=== PATIENT | female | born 1965 | race African-American/Black ===

== ENCOUNTER 2017-04-17 04:04 | Inpatient (IN) | payer OTHER ==
[~2017-04-17] VITALS: Ht 152.4 cm; Wt 100.6 kg
[2017-04-17 04:47] LABS: BASOPHILS 0.8 % (0-2); EOSINOPHILS 4.8 % (0-7); HEMATOCRIT 37.7 % (36.0-48.0); HEMOGLOBIN 12.5 g/dL (12-16); LYMPHOCYTES 39.5 % (15-50); MCH 31.5 pg (26.0-34.0); MCHC 33.2 g/dL (31.0-37.0); MEAN PLATELET VOLUME 9.3 fL (7.4-10.4); MONOCYTES 9.9 % (2-11); RBC 3.97 10x6/uL (4.00-5.40); RDW 13.2 % (11.5-14.5); WBC 5.3 10x3/uL (4.8-10.8)
[2017-04-17 04:49] LABS: PLATELET COUNT 340 10x3/uL (130-400)
[2017-04-17 04:58] LABS: ALBUMIN 3.1 g/dL (3.4-5.0); ALKALINE PHOSPHATASE 77 U/L (46-116); ALT (SGPT) 31 U/L (10-68); BILIRUBIN - TOTAL 0.23 mg/dL (0.2-1.3); CALC OSMOLALITY 275 mosm/kg (275-300); CALCIUM 8.4 mg/dL (8.5-10.1); CARBON DIOXIDE 27.5 mmol/L (21.0-32.0); CHLORIDE - SERUM 102 mmol/L (98-107); CREATININE - SERUM 0.8 mg/dL (0.6-1.3); GLUCOSE 109 mg/dL (74-106); MAGNESIUM - SERUM 1.5 mg/dL (1.8-2.4); PROTEIN - SERUM 8.2 g/dL (6.4-8.2); SODIUM 137 mmol/L (136-145); UREA NITROGEN 16 mg/dL (7-18); eGFR NON AFRICAN AMERICAN 79 mL/min (90-120)
[2017-04-17] MEDS ORDERED: SYMBICORT 16010.2 GM INH (08:50)
[2017-04-17] MEDS ORDERED: VENTOLIN HFA18 GM INH (08:51)
[2017-04-17] MEDS ORDERED: RISPERDAL1 MG PO (08:52)
[2017-04-17] MEDS ORDERED: SINGULAIR10 MG PO (08:53)
[2017-04-17] MEDS ORDERED: TRAZODONE HCL50 MG PO (08:54)
[2017-04-17] MEDS ORDERED: PROZAC20 MG PO (08:54)
[2017-04-17 13:37] VITALS: BP 147/60
--- NOTE | 2017-04-17 13:43 | NUR ---
THIS AM PTARRIVED FROM ER. CO SOB. WHEEZING HEARD TOÑO. FAN ORDERED O2 ON @ 2. NC. SEE ADMISSION ASSESSMENT FOR EVAL.
[2017-04-17 13:46] VITALS: BP 182/91; BMI 43.0
--- NOTE | 2017-04-17 13:59 | NUR ---
PT REFUSED SCDS BUT IS ON LOVENOX.
[2017-04-17 16:04] VITALS: BP 149/56
[2017-04-17 22:18] VITALS: BP 174/79
[2017-04-18] VITALS (7 sets, daily range): BP systolic 128–174; BP diastolic 65–86; Ht 152.4 cm; Wt 100.6 kg
[2017-04-18 05:58] LABS: BASOPHILS 0 % (0-2); EOSINOPHILS 0.1 % (0-7); HEMATOCRIT 36.6 % (36.0-48.0); HEMOGLOBIN 12.4 g/dL (12-16); IMMATURE GRANULOCYTES 0.1 % (0-5); LYMPHOCYTES 5.4 % (15-50); MCHC 33.9 g/dL (31.0-37.0); MCV 94.6 fL (80.0-100.0); MEAN PLATELET VOLUME 9.5 fL (7.4-10.4); MONOCYTES 4.3 % (2-11); NEUTROPHILS 90.1 % (40-80); PLATELET COUNT 350 10x3/uL (130-400); RBC 3.87 10x6/uL (4.00-5.40); RDW 13.5 % (11.5-14.5)
--- NOTE | 2017-04-18 06:16 | NUR ---
ASSESSMENT DONE. DENIES NEEDS.
[2017-04-18 06:51] LABS: ANION GAP 14.1 mmol/L (8-16); BILIRUBIN - TOTAL 0.2 mg/dL (0.2-1.3); CALCIUM 8.9 mg/dL (8.5-10.1); CARBON DIOXIDE 23.9 mmol/L (21.0-32.0); CREATININE - SERUM 0.9 mg/dL (0.6-1.3); PHOSPHOROUS 2.8 mg/dL (2.5-4.9); PROTEIN - SERUM 8.3 g/dL (6.4-8.2)
--- NOTE | 2017-04-18 08:58 | NUR ---
RESP UL ON . AT BS. CALL LIGHT IN REACH. WILL CONT. PLAN OF CARE.
--- NOTE | 2017-04-18 17:27 | NUR ---
WITHOUT CHANGES OR DISTRESS NOTED AT THIS TIME. DENIES NEEDS.
--- NOTE | 2017-04-18 21:10 | NUR ---
PT AWAKE, ALERT, ORIENTED, DENIES ANY NEEDS AT THIS TIME. PT HAS AUDIBLE WHEEZES. I HAVE ASKED PT TO CALL BEFORE AMBULATING, PT BECOMES DYSPNEIC WITH MINIMAL EXERTION. PT HAS VERBALLY AGREED TO DO SO. WILL CONTINUE TO MONITOR PT CLOSELY. BED LOW, CALL LIGHT IN REACH, SIDE RAILS X 2, HOB 30 DEGREES WITH TWO PILLOWS BEHIND PT. I HAVE GIVEN PT A CULTURE CUP TO COLLECT THE ORDERED RESPIRATORY CULTURE. PT STATES HER SPUTUM IS YELLOW AND BLACK. WILL CONTINUE TO MONITOR CLOSELY.
--- NOTE | 2017-04-19 03:59 | NUR ---
SPUTUM CXL COLLECTED ORDERED
[2017-04-19 04:00] VITALS: BP 129/66
[2017-04-19 05:09] LABS: BASOPHILS 0 % (0-2); EOSINOPHILS 0 % (0-7); HEMATOCRIT 37.4 % (36.0-48.0); HEMOGLOBIN 12.2 g/dL (12-16); IMMATURE GRANULOCYTES 0.2 % (0-5); LYMPHOCYTES 5.1 % (15-50); MCH 31.4 pg (26.0-34.0); MCHC 32.6 g/dL (31.0-37.0); MCV 96.1 fL (80.0-100.0); MEAN PLATELET VOLUME 9.6 fL (7.4-10.4); NEUTROPHILS 89.7 % (40-80); PLATELET COUNT 374 10x3/uL (130-400); RBC 3.89 10x6/uL (4.00-5.40); RDW 13.6 % (11.5-14.5); WBC 11.5 10x3/uL (4.8-10.8)
[2017-04-19 05:28] LABS: ALBUMIN 2.9 g/dL (3.4-5.0); ALKALINE PHOSPHATASE 64 U/L (46-116); ALT (SGPT) 23 U/L (10-68); CALC OSMOLALITY 271 mosm/kg (275-300); CALCIUM 8.7 mg/dL (8.5-10.1); CARBON DIOXIDE 27.6 mmol/L (21.0-32.0); CHLORIDE - SERUM 101 mmol/L (98-107); GLUCOSE 139 mg/dL (74-106); SODIUM 135 mmol/L (136-145); UREA NITROGEN 12 mg/dL (7-18)
[2017-04-19 05:32] LABS: CREATININE - SERUM 0.6 mg/dL (0.6-1.3); POTASSIUM - SERUM 4.7 mmol/L (3.5-5.1); eGFR NON AFRICAN AMERICAN > 90 mL/min (90-120)
--- NOTE | 2017-04-19 06:35 | NUR ---
PT RESTING COMFORTABLY, STILL WITH PRONOUNCED AUDIBLE WHEEZING AND MILD TACHYPNEA. PT IS EASILY ROUSABLE TO VERBAL STIMULI, DENIES ANY NEEDS. CONTINUE TO MONITOR CLOSELY.
--- NOTE | 2017-04-19 07:49 | NUR ---
ASSESSMENT DONE. DENIES NEEDS.
[2017-04-19 08:00] VITALS: BP 113/65
[2017-04-19 08:20] LABS: IMMUNOGLOBULIN E 162 IU/mL (0-100)
--- NOTE | 2017-04-19 08:31 | NUR ---
RESTS IN BED WITH EYES CLOSED. RESP UL ON . CALL LIGHT IN REACH. WILL MONITOR NEEDS.
[2017-04-19 17:26] VITALS: BP 151/77
--- NOTE | 2017-04-19 17:28 | NUR ---
WITHOUT CHANGES OR DISTRESS NOT AT THIS TIME. DENIES NEEDS
--- NOTE | 2017-04-19 19:51 | NUR ---
ANSWERED CL, PT C/O MACK, NORCO 1 TAB GIVEN, PT RATES PAIN AT A 7 ON PAIN SCALE.
[2017-04-19 22:49] VITALS: BP 124/79
--- NOTE | 2017-04-20 00:14 | NUR ---
TEAM LEADER AT BEDSIDE, CALL LIGHT IN REACH. WILL CONTINUE WITH PLAN OF CARE.
--- NOTE | 2017-04-20 01:50 | NUR ---
RESTING WITH EYES CLOSED, RESPERATIONS EVEN, NO S/S DISTRESS NOTED.
[2017-04-20 06:34] LABS: BASOPHILS 0 % (0-2); EOSINOPHILS 0 % (0-7); HEMATOCRIT 38.8 % (36.0-48.0); HEMOGLOBIN 12.8 g/dL (12-16); IMMATURE GRANULOCYTES 0.5 % (0-5); LYMPHOCYTES 6.8 % (15-50); MCH 31.7 pg (26.0-34.0); MEAN PLATELET VOLUME 9.7 fL (7.4-10.4); MONOCYTES 7.3 % (2-11); NEUTROPHILS 85.4 % (40-80); PLATELET COUNT 387 10x3/uL (130-400); RBC 4.04 10x6/uL (4.00-5.40); RDW 13.7 % (11.5-14.5)
[2017-04-20 06:53] LABS: ALBUMIN 2.8 g/dL (3.4-5.0); ALKALINE PHOSPHATASE 70 U/L (46-116); ALT (SGPT) 23 U/L (10-68); CALC OSMOLALITY 272 mosm/kg (275-300); CALCIUM 8.6 mg/dL (8.5-10.1); CARBON DIOXIDE 28.3 mmol/L (21.0-32.0); CHLORIDE - SERUM 101 mmol/L (98-107); CREATININE - SERUM 0.7 mg/dL (0.6-1.3); GLUCOSE 131 mg/dL (74-106); POTASSIUM - SERUM 4.2 mmol/L (3.5-5.1); PROTEIN - SERUM 7.8 g/dL (6.4-8.2); SODIUM 135 mmol/L (136-145); UREA NITROGEN 14 mg/dL (7-18); eGFR NON AFRICAN AMERICAN > 90 mL/min (90-120)
--- NOTE | 2017-04-20 07:30 | NUR ---
RECEIVED PT IN BED EYES CLOSED AROUSES EASILY RESP UNLABORED AUDIBLE WHEEZING NOTED PT DENIES ANY NEEDS AT THIS TIME WILL CONTINUE TO MONITOR
[2017-04-20 08:00] VITALS: BP 142/77
[2017-04-20 12:00] VITALS: BP 138/70
[2017-04-20 16:00] VITALS: BP 132/80
--- NOTE | 2017-04-20 19:27 | NUR ---
ASSESSMENT COMPLETE, A&O. RESPERATIONS LABORED. AUDIBLE WHEEZING NOTED, O2 AT 2 LITER VIA NC. PT DENIES PAIN OR NEEDS, BED LOW, CL IN REACH. WILL CONT TO MONITOR.
[2017-04-20 21:24] VITALS: BP 153/87
--- NOTE | 2017-04-20 21:48 | NUR ---
HS MEDS GIVEN WITH FRESH ICE WATER. PT DENIES PAIN OR NEEDS, BED LOW, CL IN REACH.
[2017-04-21 01:40] VITALS: BP 136/65
[2017-04-21 04:00] VITALS: BP 123/66
--- NOTE | 2017-04-21 04:56 | NUR ---
PT ASLEEP. RESPIRATIONS EVEN AND UNLABORED. NO S/S OF DISTRESS. BED LOW AND CALL LIGHT IN REACH. WILL CPOC
[2017-04-21 06:56] LABS: BASOPHILS 0 % (0-2); EOSINOPHILS 0 % (0-7); HEMATOCRIT 39.3 % (36.0-48.0); HEMOGLOBIN 13.1 g/dL (12-16); IMMATURE GRANULOCYTES 0.4 % (0-5); LYMPHOCYTES 7.6 % (15-50); MCH 32.2 pg (26.0-34.0); MCHC 33.3 g/dL (31.0-37.0); MCV 96.6 fL (80.0-100.0); MEAN PLATELET VOLUME 9.6 fL (7.4-10.4); MONOCYTES 4.7 % (2-11); NEUTROPHILS 87.3 % (40-80); PLATELET COUNT 361 10x3/uL (130-400); RBC 4.07 10x6/uL (4.00-5.40); RDW 13.7 % (11.5-14.5); WBC 9.1 10x3/uL (4.8-10.8)
[2017-04-21 07:15] LABS: ALBUMIN 2.7 g/dL (3.4-5.0); ALKALINE PHOSPHATASE 67 U/L (46-116); ALT (SGPT) 27 U/L (10-68); BILIRUBIN - TOTAL 0.15 mg/dL (0.2-1.3); CALC OSMOLALITY 275 mosm/kg (275-300); CALCIUM 8.4 mg/dL (8.5-10.1); CARBON DIOXIDE 27.1 mmol/L (21.0-32.0); CHLORIDE - SERUM 101 mmol/L (98-107); CREATININE - SERUM 0.8 mg/dL (0.6-1.3); GLUCOSE 134 mg/dL (74-106); POTASSIUM - SERUM 4.4 mmol/L (3.5-5.1); PROTEIN - SERUM 7.9 g/dL (6.4-8.2); SODIUM 136 mmol/L (136-145); UREA NITROGEN 18 mg/dL (7-18); eGFR NON AFRICAN AMERICAN 79 mL/min (90-120)
--- NOTE | 2017-04-21 07:30 | NUR ---
RECEIVED PT SITTING ON SIDE OF BED AAOX4 RESP UNALBORED DENIES ANY NEEDS OR DISCOMFORT NAD NOTED
[2017-04-21 08:40] VITALS: BP 125/72
[2017-04-21] MEDS ORDERED: LEVAQUIN750 MG PO (11:50)
[2017-04-21] MEDS ORDERED: MUCINEX600 MG PO (11:51)
[2017-04-21] MEDS ORDERED: PREDNISONE10 MG PO (11:52)
--- NOTE | 2017-04-21 12:29 | NUR ---
Patient Name: BRIELLE MARTI Admission Status: ER Accout number: [id number] Admission Date: 04-17-2017 : 1965 Admission Diagnosis:SHORTNESS OF BREATH Attending: KRIS SOLIMAN Current LOS: 4 Anticipated DC Date: 04-21-2017 Planned Disposition: Home Primary Insurance: [employer] CHOICE PPO MCR ADVANT Discharge Planning Comments: * Is the patient Alert and Oriented? Yes 0 * How many steps to enter\exit or inside your home? 10-O / 4-I 0 * PCP NONE 0 * Pharmacy [facility] * Preadmission Environment Home with Family 0 * ADLs Independent 0 * Equipment Nebulizer 0 * Other Equipment NO MEDICAL EQUIPMENT PROVIDER PREFERENCE 0 * List name and contact numbers for known caregivers / representatives who currently or will assist patient after discharge: SHAHBAZ MARTI, SPOUSE, 0 * Community resources currently utilized None 0 * Please name any agencies selected above. NONE 0 * Additional services required to return to the preadmission environment? No 0 * Can the patient safely return to the preadmission environment? Yes 0 * Has this patient been hospitalized within the prior 30 days at any hospital? No 0 CM RECEIVED ORDER FOR OXYGEN; CM MET WITH PT IN ROOM TO DISCUSS DISCHARGE PLANNING AND NEEDS. PT REPORTS LIVING AT HOME INDEPENDENTLY WITH HER SPOUSE. PT HAS NEBULIZER WITH NO MEDICAL EQUIPMENT PROVIDER PREFERENCE AND NO OUTSIDE SERVICES ASSISTING IN THE HOME. CM DISCUSSED AVAILABILITY OF HOME HEALTH, REHAB SERVICES AND MEDICAL EQUIPMENT. PT DENIES DISCHARGE NEEDS OTHER THAN OXYGEN, REPORTS HER SPOUSE WILL PICK HER UP FOR DISCHARGE HOME. IMPORTANT MESSAGE FROM MEDICARE PROVIDED AND EXPLAINED. CM CALLED [facility] [facility], SPOKE TO ANDREA, THEY ARE OUT OF NETWORK FOR PT'S INSURANCE. CM CALLED [facility], IN NETWORK AND WILL CONTINUOUS PROCESS ROTARY DRUM TANNER REFERRAL SHORTLY, ARRANGE PORTABLE OXYGEN FOR DISCHARGE HOME TODAY AND HOME OXYGEN IN PT'S HOME. Blanker Operator: Ed Dale
--- NOTE | 2017-04-21 17:30 | NUR ---
REVIEWED DISCHARGE INSTRUCTIONS WITH PT STATES UNDERSTANDING COPY GIVEN SALINE LOCK DCD TO RFA WITH IV CATHETR INTACT SITE FREE OF REDNESS OR EDEMA PORTABLE O2 HERE PT DISCHARGED HOME LEFT UNIT VIA W/C IN STABLE CONDTION WITH ALL PERSONAL BELONGINGS
--- NOTE | 2017-05-01 11:15 | CN ---
PATIENT NAME:BRIELLE MANDUJANO MEDICAL RECORD: [id number] : 61 LOCATION:. D.2121 ADMIT DATE: 04/17/17 ACCOUNT: [id number] CONSULTING PHYSICIAN: RYAN TOBIAS MD REFERRING PHYSICIAN: KRIS SOLIMAN MD DATE OF CONSULTATION: 04/20/2017 DATE OF CONSULTATION: 04/20/2017 REFERRING PHYSICIAN: Dr. Myers REASON FOR CONSULTATION: Hoarseness and stridor. HISTORY OF PRESENT ILLNESS: Mrs. Mandujano is a 51-year-old female with a long history of COPD and airway disease. She is being admitted with pneumonia and COPD exacerbation. She describes a history of fluctuating airway symptoms, sometimes she is normal and sometimes she has a lot of problems. She is on a lot of inhaled medications for her airway problems. PAST MEDICAL HISTORY: I got off the chart. PHYSICAL EXAMINATION: GENERAL: She is generally healthy appearing. She is in no distress. She is alert. She is cooperative. She is a good historian. She has a mildly hoarse voice. She is breathing comfortably. EYES: Sclerae and conjunctivae are normal. NOSE: No mass, polyps or drainage. MOUTH: Oral cavity and oropharynx, tongue is midline. Pharynx is normal. No lesions. NECK: No masses. No adenopathy. DIAGNOSTIC STUDIES: Flexible laryngoscopy through the left side of the nose after decongesting with Afrin and lidocaine, the nasal cavity and nasopharynx were perfectly normal. The hypopharynx, vallecula, and base of tongue are normal. The supraglottic larynx, she has got a massive amount of postcricoid erythema and edema consistent with reflux. The AE folds and epiglottis are normal. The anterior cords are completely normal. She has got normal cord mobility. Because of the massive postcricoid edema, it is hard to evaluate the posterior glottic opening, but I can see the subglottis and it appears normal as well. I do not see any secretions, masses, or lesions. She does not have any vocal cord polyps. IMPRESSION: COPD, some respiratory problems. I see no evidence of stenosis, although she has massive postcricoid laryngeal edema because it was consistent with reflux. So, in addition to having her rinse really good after using her inhalers, I would treat her aggressively for reflux probably with PPIs and Zantac. TRANSINT:[id number] Voice Confirmation ID: [id number] DOCUMENT ID: [id number] CONSULT REPORT [id number] BRIELLE MANDUJANO ERIC MD at 1115 CC: [id number] DICTATION DATE: 04/20/17 1323 WEAVER HAND: 04/20/17 1535 DIS IN 04/21/[address] [facility] [address] [place] [id number]
== END 2017-04-21 17:30 | disposition home or self-care (01) | DRG 191 ==
LOC: D.ER 04:04 → D.M2 08:03
PROVIDERS: Emergency Medicine; Internal Medicine Pulmonary Disease; ADMIT Emergency Medicine
DX: J44.0 Chronic obstructive pulmonary disease with (acute) lower respiratory infection (principal); J45.901 Unspecified asthma with (acute) exacerbation; J44.1 Chronic obstructive pulmonary disease with (acute) exacerbation; Z77.22 Contact with and (suspected) exposure to environmental tobacco smoke (acute) (chronic); J30.9 Allergic rhinitis, unspecified; E83.42 Hypomagnesemia; F32.9 Major depressive disorder, single episode, unspecified; K21.9 Gastro-esophageal reflux disease without esophagitis; K75.9 Inflammatory liver disease, unspecified; J20.9 Acute bronchitis, unspecified; Z87.891 Personal history of nicotine dependence

== ENCOUNTER 2017-07-27 05:14 | Inpatient (IN) | payer MEDICAID ==
[~2017-07-27] VITALS: Ht 160 cm; Wt 104.3 kg
[2017-07-27] VITALS (8 sets, daily range): BP systolic 138–185; BP diastolic 60–104; BMI 42.5
--- NOTE | ~2017-07-27 | OP ---
PATIENT NAME: BRIELLE MARTI MEDICAL RECORD: [id number] :[birth year] LOCATION:D.MS Hair2220 ADMISSION DATE:07/27/17 SURGEON: SHANNEN CORTEZ MD DATE OF OPERATION: 08/02/2017 SURGEON: Shannen Cortez MD PREOPERATIVE DIAGNOSIS: Left thyroid mass with airway compromise to stridor. POSTOPERATIVE DIAGNOSIS: Left thyroid mass with airway compromise to stridor. PROCEDURE PERFORMED: Left hemithyroidectomy. ANESTHESIA: General. COMPLICATIONS: None. SPECIMENS: Left thyroid lobectomy and isthmus. Case was clean. ESTIMATED BLOOD LOSS: 40 cc. OPERATIVE COURSE: After consent was obtained, the patient was taken to the operating room and placed in the supine position on the operating table. Next, general anesthesia was given via endotracheal intubation after a timeout was performed that confirmed the correct patient and procedure. Timeout was taken to confirm the correct patient and procedure. The neck was prepped and draped in typical sterile fashion. External landmarks were identified. Curvilinear incision was made approximately 2 fingerbreadths above the sternal notch. Skin was incised with a #15 blade scalpel. Dissection continued through the subcutaneous tissue with electrocautery. The anterior jugular veins were identified. They were ligated using 3-0 silk suture. The platysma was transected with electrocautery. Platysmal flaps were created using blunt dissection and electrocautery. Once subplatysmal flaps were made, self-retaining retractor was placed. The median raphe was opened using electrocautery. The strap muscles were bluntly dissected laterally on the left side. The left lobe of the thyroid was then bluntly dissected and rotated medially starting at the inferior pole, dissection was performed with a combination of Harmonic scalpel and clip small machine bindery operator and electrocautery. The inferior thyroid vessels were identified. The inferior parathyroid gland was identified. It was dissected off of the inferior pole of the left thyroid gland. A combination of Harmonic scalpel, electrocautery, and clip small machine bindery operator. Dissection continued until the middle thyroid veins were identified. The middle thyroid veins were ligated using clip small machine bindery operator and Harmonic scalpel. Dissection continued towards the superior pole at which time the superior thyroid artery and vein were identified as well as the superior parathyroid gland. Again, the gland was gently dissected off of the superior pole of the thyroid, the ligament of Thapa was taken with the Harmonic scalpel. The remaining tissues were dissected with Harmonic scalpel, clip applicator, and Harmonics and electrocautery, dissection then continued immediately. As the left thyroid lobe was mobilized from lateral to medial, remaining attachments were taken with the Harmonic scalpel. The left thyroid lobe and the isthmus were dissected off the trachea using Harmonic scalpel. Once complete, the left thyroid lobe and isthmus were removed. They were marked with a suture short stitch, superior long stitch lateral, and double stitch anterior and sent for permanent pathology. The wound was then packed for approximately 5 minutes. After the OPERATIVE REPORT [id number] BROWN,BRIELLE packing was removed, the wound was copiously irrigated and suctioned. The inferior and superior parathyroid glands appeared intact. The tracheoesophageal groove was dissected until the superior laryngeal nerve was identified. The superior laryngeal nerve was intact in its course in the tracheoesophageal groove without injury. At this time, some Dorita powder was applied. The strap muscles were reapproximated using a 3-0 chromic suture. The platysma was reapproximated using 3-0 Vicryl. The skin was closed with 3-0 Stratafix, Mastisol, and Steri-Strips. At the end of the case, all needle and instrument counts were correct. No complications occurred. The patient was extubated and transferred to the PACU in stable condition. TRANSINT:[id number] Voice Confirmation ID: [id number] DOCUMENT ID: [id number] SHANNEN CORTEZ MD at 1436 CC: [id number] DICTATION DATE: 08/02/1757 HEAD UP OPERATOR HELPER: 08/02/17 1041 ADM IN [place] [id number] [place] [id number]
[~2017-07-27 05:14] MED LIST: LEVAQUIN750 MG PO; MUCINEX600 MG PO; PREDNISONE10 MG PO; PROZAC20 MG PO; RISPERDAL1 MG PO; SINGULAIR10 MG PO; SYMBICORT 16010.2 GM INH; TRAZODONE HCL50 MG PO; VENTOLIN HFA18 GM INH
[2017-07-27 05:48] LABS: BASOPHILS 0.5 % (0-2); EOSINOPHILS 3.2 % (0-7); HEMATOCRIT 37.5 % (36.0-48.0); IMMATURE GRANULOCYTES 0.2 % (0-5); LYMPHOCYTES 47.9 % (15-50); MCH 31.4 pg (26.0-34.0); MCV 98.2 fL (80.0-100.0); MEAN PLATELET VOLUME 9.3 fL (7.4-10.4); MONOCYTES 13.3 % (2-11); NEUTROPHILS 34.9 % (40-80); RBC 3.82 10x6/uL (4.00-5.40); WBC 6.5 10x3/uL (4.8-10.8)
[2017-07-27 05:49] LABS: PLATELET COUNT 436 10x3/uL (130-400)
[2017-07-27 06:07] LABS: ALBUMIN 3.4 g/dL (3.4-5.0); ALKALINE PHOSPHATASE 82 U/L (46-116); ALT (SGPT) 83 U/L (10-68); BILIRUBIN - TOTAL 0.43 mg/dL (0.2-1.3); CALC OSMOLALITY 278 mosm/kg (275-300); CALCIUM 8.8 mg/dL (8.5-10.1); CARBON DIOXIDE 33.9 mmol/L (21.0-32.0); CHLORIDE - SERUM 102 mmol/L (98-107); CREATININE - SERUM 0.7 mg/dL (0.6-1.3); GLUCOSE 109 mg/dL (74-106); POTASSIUM - SERUM 3.9 mmol/L (3.5-5.1); PROTEIN - SERUM 8.3 g/dL (6.4-8.2); SODIUM 140 mmol/L (136-145); UREA NITROGEN 10 mg/dL (7-18); eGFR NON AFRICAN AMERICAN > 90 mL/min (90-120)
[2017-07-27] MEDS ORDERED: FLUTICASONE PRO16 GM NASAL (09:50)
[2017-07-28] VITALS (24 sets, daily range): BP systolic 110–170; BP diastolic 71–101; BMI 38.4
[2017-07-28 04:00] LABS: BASOPHILS 0 % (0-2); EOSINOPHILS 0 % (0-7); HEMATOCRIT 36.4 % (36.0-48.0); HEMOGLOBIN 11.4 g/dL (12-16); IMMATURE GRANULOCYTES 0.2 % (0-5); LYMPHOCYTES 4.5 % (15-50); MCH 30.6 pg (26.0-34.0); MCHC 31.3 g/dL (31.0-37.0); MCV 97.8 fL (80.0-100.0); MEAN PLATELET VOLUME 9.6 fL (7.4-10.4); MONOCYTES 2.7 % (2-11); NEUTROPHILS 92.6 % (40-80); PLATELET COUNT 425 10x3/uL (130-400); RBC 3.72 10x6/uL (4.00-5.40)
[2017-07-28 04:02] LABS: WBC 8.4 10x3/uL (4.8-10.8)
[2017-07-28 04:17] LABS: APTT 29.4 SECONDS (22.8-39.4); INR 1.01 (0.85-1.17); PROTIME 12.9 SECONDS (11.6-15.0)
[2017-07-28 04:21] LABS: ALBUMIN 3.1 g/dL (3.4-5.0); ALKALINE PHOSPHATASE 76 U/L (46-116); ALT (SGPT) 66 U/L (10-68); BILIRUBIN - TOTAL 0.16 mg/dL (0.2-1.3); CARBON DIOXIDE 29.3 mmol/L (21.0-32.0); CHLORIDE - SERUM 103 mmol/L (98-107); CREATININE - SERUM 0.8 mg/dL (0.6-1.3); POTASSIUM - SERUM 3.9 mmol/L (3.5-5.1); PROTEIN - SERUM 8.3 g/dL (6.4-8.2); SODIUM 141 mmol/L (136-145); UREA NITROGEN 12 mg/dL (7-18); eGFR NON AFRICAN AMERICAN 79 mL/min (90-120)
[2017-07-28 04:24] LABS: CALC OSMOLALITY 285 mosm/kg (275-300); GLUCOSE 183 mg/dL (74-106)
[2017-07-29] VITALS (18 sets, daily range): BP systolic 127–174; BP diastolic 73–98; Ht 160 cm; Wt 104.3 kg
[2017-07-29 04:07] LABS: BASOPHILS 0 % (0-2); EOSINOPHILS 0 % (0-7); HEMATOCRIT 35.5 % (36.0-48.0); HEMOGLOBIN 11.2 g/dL (12-16); IMMATURE GRANULOCYTES 0.5 % (0-5); LYMPHOCYTES 4.9 % (15-50); MCHC 31.5 g/dL (31.0-37.0); MCV 98.3 fL (80.0-100.0); MEAN PLATELET VOLUME 9.8 fL (7.4-10.4); MONOCYTES 4.2 % (2-11); NEUTROPHILS 90.4 % (40-80); PLATELET COUNT 452 10x3/uL (130-400); RBC 3.61 10x6/uL (4.00-5.40); RDW 13.3 % (11.5-14.5)
[2017-07-29 04:08] LABS: WBC 12.5 10x3/uL (4.8-10.8)
[2017-07-29 04:40] LABS: CALC OSMOLALITY 282 mosm/kg (275-300); CALCIUM 8.7 mg/dL (8.5-10.1); CARBON DIOXIDE 30.7 mmol/L (21.0-32.0); CHLORIDE - SERUM 103 mmol/L (98-107); CREATININE - SERUM 0.8 mg/dL (0.6-1.3); GLUCOSE 139 mg/dL (74-106); MAGNESIUM - SERUM 1.8 mg/dL (1.8-2.4); PHOSPHOROUS 2.6 mg/dL (2.5-4.9); SODIUM 140 mmol/L (136-145); THYROID STIMULATING HORMONE 0.15 uIU/mL (0.36-3.74); UREA NITROGEN 17 mg/dL (7-18); eGFR NON AFRICAN AMERICAN 79 mL/min (90-120)
[2017-07-29 05:02] LABS: APPEARANCE HAZY (CLEAR); COLOR YELLOW (YELLOW)
[2017-07-29 05:03] LABS: BACTERIA FEW /hpf (NONE SEEN); BILIRUBIN NEGATIVE (NEGATIVE); EPITHELIAL CELLS OCC /hpf (0-5); GLUCOSE 50 mg/dL (NEGATIVE); KETONE NEGATIVE (NEGATIVE); NITRITE NEGATIVE (NEGATIVE); PROTEIN NEGATIVE (NEGATIVE); RED CELLS - URINE NONE SEEN /hpf (0-5); UROBILINOGEN NORMAL (NORMAL)
[2017-07-30] VITALS: BP 154/60
[2017-07-30 04:00] VITALS: BP 143/87
[2017-07-30 08:47] LABS: BASOPHILS 0 % (0-2); EOSINOPHILS 0 % (0-7); HEMATOCRIT 37.7 % (36.0-48.0); IMMATURE GRANULOCYTES 0.8 % (0-5); LYMPHOCYTES 7.9 % (15-50); MCHC 31.8 g/dL (31.0-37.0); MCV 97.4 fL (80.0-100.0); MEAN PLATELET VOLUME 9.6 fL (7.4-10.4); MONOCYTES 4.3 % (2-11); PLATELET COUNT 446 10x3/uL (130-400); RBC 3.87 10x6/uL (4.00-5.40); RDW 13.4 % (11.5-14.5); WBC 11.5 10x3/uL (4.8-10.8)
[2017-07-30 09:00] LABS: % SATURATION 25 % (15-55); IRON 80 ug/dl (35-150); TOTAL IRON BIND CAPACITY 316 ug/dl (260-445); UNSAT IRON BIND CAPACITY 236 ug/dl (150-375)
[2017-07-30 09:10] VITALS: BP 175/79
[2017-07-30 09:21] LABS: ANION GAP 11.2 mmol/L (8-16); CALCIUM 9.1 mg/dL (8.5-10.1); CARBON DIOXIDE 28.7 mmol/L (21.0-32.0); CREATININE - SERUM 0.9 mg/dL (0.6-1.3); POTASSIUM - SERUM 3.9 mmol/L (3.5-5.1)
[2017-07-30 11:34] VITALS: BP 143/77
[2017-07-30 20:00] VITALS: BP 150/90
[2017-07-31] VITALS: BP 140/80
[2017-07-31 04:00] VITALS: BP 165/71
[2017-07-31 04:57] LABS: BASOPHILS 0 % (0-2); EOSINOPHILS 0 % (0-7); HEMOGLOBIN 10.8 g/dL (12-16); IMMATURE GRANULOCYTES 0.7 % (0-5); MCH 30.8 pg (26.0-34.0); MCHC 31.8 g/dL (31.0-37.0); MCV 96.9 fL (80.0-100.0); MEAN PLATELET VOLUME 9.5 fL (7.4-10.4); MONOCYTES 5.3 % (2-11); PLATELET COUNT 381 10x3/uL (130-400); RBC 3.51 10x6/uL (4.00-5.40); RDW 13.2 % (11.5-14.5); WBC 9.4 10x3/uL (4.8-10.8)
[2017-07-31 05:11] LABS: CALC OSMOLALITY 279 mosm/kg (275-300); CALCIUM 8.3 mg/dL (8.5-10.1); CARBON DIOXIDE 32.1 mmol/L (21.0-32.0); CHLORIDE - SERUM 102 mmol/L (98-107); CREATININE - SERUM 0.7 mg/dL (0.6-1.3); GLUCOSE 127 mg/dL (74-106); POTASSIUM - SERUM 4.1 mmol/L (3.5-5.1); SODIUM 138 mmol/L (136-145); UREA NITROGEN 17 mg/dL (7-18); eGFR NON AFRICAN AMERICAN > 90 mL/min (90-120)
[2017-07-31 08:04] VITALS: BP 150/76
[2017-07-31 15:33] VITALS: BP 147/88
[2017-07-31 21:52] VITALS: BP 130/81
[2017-08-01 00:48] VITALS: BP 137/73
[2017-08-01 06:06] LABS: CALC OSMOLALITY 278 mosm/kg (275-300); CALCIUM 8.3 mg/dL (8.5-10.1); CARBON DIOXIDE 32.3 mmol/L (21.0-32.0); CHLORIDE - SERUM 102 mmol/L (98-107); CREATININE - SERUM 0.8 mg/dL (0.6-1.3); GLUCOSE 98 mg/dL (74-106); POTASSIUM - SERUM 3.8 mmol/L (3.5-5.1); SODIUM 138 mmol/L (136-145); UREA NITROGEN 20 mg/dL (7-18); eGFR NON AFRICAN AMERICAN 79 mL/min (90-120)
[2017-08-01 06:20] LABS: HEMATOCRIT 33.3 % (36.0-48.0); HEMOGLOBIN 10.9 g/dL (12-16); LYMPHOCYTES 14.8 % (15-50); MCH 31.7 pg (26.0-34.0); MCHC 32.7 g/dL (31.0-37.0); MCV 96.8 fL (80.0-100.0); MEAN PLATELET VOLUME 9.3 fL (7.4-10.4); NEUTROPHILS 76.7 % (40-80); PLATELET COUNT 382 10x3/uL (130-400); RBC 3.44 10x6/uL (4.00-5.40); WBC 9.1 10x3/uL (4.8-10.8)
[2017-08-01 07:54] VITALS: BP 157/85
[2017-08-01 11:15] LABS: THYROGLOBULIN ANTIBODY <1.0 IU/mL (0.0-0.9); THYROID PEROXIDASE ABS 20 IU/mL (0-34)
[2017-08-01 12:26] VITALS: BP 106/61
[2017-08-01 16:14] VITALS: BP 121/61
[2017-08-01 21:28] VITALS: BP 112/62
[2017-08-02 00:56] VITALS: BP 108/52
[2017-08-02 04:36] VITALS: BP 149/84
[2017-08-02 06:06] LABS: BASOPHILS 0 % (0-2); EOSINOPHILS 0.1 % (0-7); HEMOGLOBIN 11.3 g/dL (12-16); IMMATURE GRANULOCYTES 0.5 % (0-5); LYMPHOCYTES 12.2 % (15-50); MCH 30.9 pg (26.0-34.0); MCHC 31.4 g/dL (31.0-37.0); MCV 98.4 fL (80.0-100.0); MEAN PLATELET VOLUME 9.7 fL (7.4-10.4); MONOCYTES 9.5 % (2-11); NEUTROPHILS 77.7 % (40-80); PLATELET COUNT 379 10x3/uL (130-400); RBC 3.66 10x6/uL (4.00-5.40); RDW 13.2 % (11.5-14.5); WBC 9.4 10x3/uL (4.8-10.8)
[2017-08-02 06:40] LABS: ALBUMIN 2.7 g/dL (3.4-5.0); ALKALINE PHOSPHATASE 61 U/L (46-116); ALT (SGPT) 45 U/L (10-68); BILIRUBIN - TOTAL 0.26 mg/dL (0.2-1.3); CALC OSMOLALITY 280 mosm/kg (275-300); CALCIUM 8.3 mg/dL (8.5-10.1); CARBON DIOXIDE 30.5 mmol/L (21.0-32.0); CHLORIDE - SERUM 102 mmol/L (98-107); CREATININE - SERUM 0.6 mg/dL (0.6-1.3); GLUCOSE 94 mg/dL (74-106); POTASSIUM - SERUM 3.7 mmol/L (3.5-5.1); PROTEIN - SERUM 6.9 g/dL (6.4-8.2); SODIUM 140 mmol/L (136-145); UREA NITROGEN 17 mg/dL (7-18); eGFR NON AFRICAN AMERICAN > 90 mL/min (90-120)
[2017-08-02 11:28] VITALS: BP 122/71
[2017-08-02 15:58] VITALS: BP 119/68
[2017-08-02 20:00] VITALS: BP 141/79
[2017-08-03] VITALS: BP 156/73
[2017-08-03 04:54] VITALS: BP 124/68
[2017-08-03 06:27] LABS: BASOPHILS 0.1 % (0-2); EOSINOPHILS 0 % (0-7); IMMATURE GRANULOCYTES 0.5 % (0-5); LYMPHOCYTES 6.9 % (15-50); MCHC 31.4 g/dL (31.0-37.0); MCV 98.6 fL (80.0-100.0); MEAN PLATELET VOLUME 9.9 fL (7.4-10.4); NEUTROPHILS 80.5 % (40-80); PLATELET COUNT 391 10x3/uL (130-400); RBC 3.55 10x6/uL (4.00-5.40); RDW 13.3 % (11.5-14.5); WBC 16.6 10x3/uL (4.8-10.8)
[2017-08-03 06:57] LABS: ALBUMIN 2.9 g/dL (3.4-5.0); ALKALINE PHOSPHATASE 55 U/L (46-116); ALT (SGPT) 41 U/L (10-68); BILIRUBIN - TOTAL 0.27 mg/dL (0.2-1.3); CALC OSMOLALITY 276 mosm/kg (275-300); CALCIUM 8.8 mg/dL (8.5-10.1); CARBON DIOXIDE 30.3 mmol/L (21.0-32.0); CHLORIDE - SERUM 100 mmol/L (98-107); CREATININE - SERUM 0.6 mg/dL (0.6-1.3); GLUCOSE 112 mg/dL (74-106); POTASSIUM - SERUM 4.1 mmol/L (3.5-5.1); PROTEIN - SERUM 6.8 g/dL (6.4-8.2); SODIUM 138 mmol/L (136-145); UREA NITROGEN 13 mg/dL (7-18); eGFR NON AFRICAN AMERICAN > 90 mL/min (90-120)
[2017-08-03 07:48] VITALS: BP 109/68
[2017-08-03 12:09] VITALS: BP 123/69
[2017-08-03 15:27] VITALS: BP 121/53
[2017-08-03 20:00] VITALS: BP 132/78
[2017-08-04 04:00] VITALS: BP 140/76
[2017-08-04 04:34] LABS: BASOPHILS 0 % (0-2); EOSINOPHILS 0.2 % (0-7); HEMATOCRIT 32.7 % (36.0-48.0); HEMOGLOBIN 10.1 g/dL (12-16); IMMATURE GRANULOCYTES 0.5 % (0-5); LYMPHOCYTES 12.4 % (15-50); MCH 30.6 pg (26.0-34.0); MCHC 30.9 g/dL (31.0-37.0); MCV 99.1 fL (80.0-100.0); MEAN PLATELET VOLUME 9.4 fL (7.4-10.4); NEUTROPHILS 73.9 % (40-80); PLATELET COUNT 328 10x3/uL (130-400); RDW 13.4 % (11.5-14.5)
[2017-08-04 04:36] LABS: WBC 12.1 10x3/uL (4.8-10.8)
[2017-08-04 05:04] LABS: ALBUMIN 2.7 g/dL (3.4-5.0); ALKALINE PHOSPHATASE 58 U/L (46-116); ALT (SGPT) 36 U/L (10-68); CALC OSMOLALITY 277 mosm/kg (275-300); CALCIUM 8.5 mg/dL (8.5-10.1); CHLORIDE - SERUM 102 mmol/L (98-107); CREATININE - SERUM 0.5 mg/dL (0.6-1.3); GLUCOSE 105 mg/dL (74-106); POTASSIUM - SERUM 4.1 mmol/L (3.5-5.1); PROTEIN - SERUM 6.4 g/dL (6.4-8.2); SODIUM 139 mmol/L (136-145); UREA NITROGEN 13 mg/dL (7-18); eGFR NON AFRICAN AMERICAN > 90 mL/min (90-120)
[2017-08-04 08:14] VITALS: BP 109/82
[2017-08-04 12:10] VITALS: BP 120/59
[2017-08-04 15:49] VITALS: BP 114/55
[2017-08-04] MEDS ORDERED: MUCINEX DM ER1 EAC1 PO (16:19)
[2017-08-04] MEDS ORDERED: PROTONIX40 MG PO (16:20)
[2017-08-04] MEDS ORDERED: CATAPRES0.1 MG PO (16:21)
[2017-08-04] MEDS ORDERED: PREDNISONE10 MG PO (16:21)
== END 2017-08-04 18:36 | disposition home health service (06) | DRG 625 ==
LOC: D.ER 05:14 → D.SDCHOLD 06:41 → D.ER 06:41 → D.ICU 07:36 → D.M2 07:36 → D.MS 07:36 → D.ICU 18:17 → D.MS 07-29 21:03
PROVIDERS: Emergency Medicine; Internal Medicine Nephrology; Internal Medicine Pulmonary Disease; Surgery
PROC: 0GBG3ZX Excision of Left Thyroid Gland Lobe, Percutaneous Approach, Diagnostic (ICD-10-PCS; 2017-07-31)
PROC: 0GTJ0ZZ Resection of Thyroid Gland Isthmus, Open Approach (ICD-10-PCS; 2017-08-02)
PROC: 0GTG0ZZ Resection of Left Thyroid Gland Lobe, Open Approach (ICD-10-PCS; principal; 2017-08-02 12:15)
DX: E07.89 Other specified disorders of thyroid (principal); J96.21 Acute and chronic respiratory failure with hypoxia; J96.22 Acute and chronic respiratory failure with hypercapnia; J44.0 Chronic obstructive pulmonary disease with (acute) lower respiratory infection; J44.1 Chronic obstructive pulmonary disease with (acute) exacerbation; M35.1 Other overlap syndromes; J39.8 Other specified diseases of upper respiratory tract; R06.1 Stridor; J38.4 Edema of larynx; F20.9 Schizophrenia, unspecified; F31.9 Bipolar disorder, unspecified; J20.9 Acute bronchitis, unspecified; R04.0 Epistaxis; J30.9 Allergic rhinitis, unspecified; B19.20 Unspecified viral hepatitis C without hepatic coma; E09.9 Drug or chemical induced diabetes mellitus without complications; T38.0X5A Adverse effect of glucocorticoids and synthetic analogues, initial encounter

== ENCOUNTER → 2017-08-11 10:08 | Outpatient (CLI) | payer MEDICAID ==
[2017-07-29 13:08] VITALS: BMI 38.4
[~2017-08-11 10:08] MED LIST changes: +CATAPRES0.1 MG PO; +DOXYCYCLINE HY100 M2 PO; +FLUTICASONE PRO16 GM NASAL; +MUCINEX DM ER1 EAC1 PO; +OMEPRAZOLE20 M1 PO; +PREDNISONE50 MG PO; +PROTONIX40 MG PO; +ULTRAM50 MG PO; +ZANTAC150 MG
== END | disposition home or self-care (01) ==
LOC: D.RT 10:08
DX: J45.909 Unspecified asthma, uncomplicated (principal)

== ENCOUNTER → 2017-08-14 19:32 | Outpatient (CLI) | payer MEDICAID ==
[2017-07-29 13:08] VITALS: BMI 38.4
== END | disposition home or self-care (01) ==
LOC: D.SLEEP 19:32
DX: G47.9 Sleep disorder, unspecified (principal); R53.83 Other fatigue

== ENCOUNTER 2017-10-27 09:57 | Emergency (ER) | payer MEDICAID ==
[2017-07-29 13:08] VITALS: BMI 38.4
[~2017-10-27 09:57] MED LIST changes: -DOXYCYCLINE HY100 M2 PO; -OMEPRAZOLE20 M1 PO; -PREDNISONE50 MG PO; -ULTRAM50 MG PO; -ZANTAC150 MG
[2017-10-27 10:55] LABS: BASOPHILS 0.4 % (0-2); EOSINOPHILS 2.3 % (0-7); HEMATOCRIT 35.6 % (36.0-48.0); HEMOGLOBIN 11.2 g/dL (12-16); IMMATURE GRANULOCYTES 0.2 % (0-5); LYMPHOCYTES 28.2 % (15-50); MCHC 31.5 g/dL (31.0-37.0); MCV 95.4 fL (80.0-100.0); MEAN PLATELET VOLUME 9.8 fL (7.4-10.4); MONOCYTES 14.6 % (2-11); NEUTROPHILS 54.3 % (40-80); RBC 3.73 10x6/uL (4.00-5.40); RDW 13.2 % (11.5-14.5); WBC 5.2 10x3/uL (4.8-10.8)
[2017-10-27 11:05] LABS: PLATELET COUNT 253 10x3/uL (130-400)
[2017-10-27 11:10] LABS: ALBUMIN 3.1 g/dL (3.4-5.0); ALKALINE PHOSPHATASE 60 U/L (46-116); ALT (SGPT) 42 U/L (10-68); BILIRUBIN - TOTAL 0.45 mg/dL (0.2-1.3); CALC OSMOLALITY 276 mosm/kg (275-300); CALCIUM 9.2 mg/dL (8.5-10.1); CARBON DIOXIDE 35.8 mmol/L (21.0-32.0); CHLORIDE - SERUM 101 mmol/L (98-107); CREATININE - SERUM 0.6 mg/dL (0.6-1.3); GLUCOSE 99 mg/dL (74-106); POTASSIUM - SERUM 4.2 mmol/L (3.5-5.1); PROTEIN - SERUM 8.1 g/dL (6.4-8.2); SODIUM 140 mmol/L (136-145); UREA NITROGEN 7 mg/dL (7-18); eGFR NON AFRICAN AMERICAN > 90 mL/min (90-120)
[2017-10-27 11:19] LABS: CREATINE KINASE 155 UL (21-215); PRO BNP 152 pg/mL (0-125)
[2017-10-27 11:21] LABS: TROPONIN-I < 0.017 ng/mL (0.000-0.060)
== END 2017-10-27 12:03 | disposition home or self-care (01) ==
LOC: D.ER 09:57
PROVIDERS: Emergency Medicine
DX: J45.901 Unspecified asthma with (acute) exacerbation (principal); J44.9 Chronic obstructive pulmonary disease, unspecified; B19.20 Unspecified viral hepatitis C without hepatic coma

== ENCOUNTER 2017-11-10 08:57 | Emergency (ER) | payer MEDICAID ==
[2017-07-29 13:08] VITALS: BMI 38.4
== END 2017-11-10 10:55 | disposition home or self-care (01) ==
LOC: D.ER 08:57
DX: R06.00 Dyspnea, unspecified (principal); J44.1 Chronic obstructive pulmonary disease with (acute) exacerbation; B19.20 Unspecified viral hepatitis C without hepatic coma

== ENCOUNTER 2017-11-17 00:48 | Emergency (ER) | payer MEDICAID ==
[~2017-11-17] VITALS: Ht 160 cm; Wt 97.7 kg
[2017-11-17 00:50] VITALS: Ht 160 cm; Wt 97.7 kg
[2017-11-17] MEDS ORDERED: FLUTICASONE PRO16 GM NASAL (00:56)
[2017-11-17] MEDS ORDERED: OMEPRAZOLE20 M1 PO (00:56)
[2017-11-17] MEDS ORDERED: ULTRAM50 MG PO (00:57)
[2017-11-17] MEDS ORDERED: ZANTAC150 MG (00:59)
[2017-11-17 01:47] LABS: ALBUMIN 3.1 g/dL (3.4-5.0); ALKALINE PHOSPHATASE 79 U/L (46-116); ALT (SGPT) 51 U/L (10-68); CALC OSMOLALITY 279 mosm/kg (275-300); CALCIUM 8.4 mg/dL (8.5-10.1); CARBON DIOXIDE 32.3 mmol/L (21.0-32.0); CHLORIDE - SERUM 102 mmol/L (98-107); CREATININE - SERUM 0.7 mg/dL (0.6-1.3); GLUCOSE 111 mg/dL (74-106); POTASSIUM - SERUM 4.1 mmol/L (3.5-5.1); PROTEIN - SERUM 7.7 g/dL (6.4-8.2); SODIUM 139 mmol/L (136-145); UREA NITROGEN 15 mg/dL (7-18); eGFR NON AFRICAN AMERICAN > 90 mL/min (90-120)
[2017-11-17 01:50] LABS: TROPONIN-I < 0.017 ng/mL (0.000-0.060)
[2017-11-17 01:53] LABS: BASOPHILS 0 % (0-2); EOSINOPHILS 1.8 % (0-7); HEMATOCRIT 33.5 % (36.0-48.0); HEMOGLOBIN 10.6 g/dL (12-16); LYMPHOCYTES 47.9 % (15-50); MCH 30.4 pg (26.0-34.0); MCHC 31.6 g/dL (31.0-37.0); MONOCYTES 7.3 % (2-11); PLATELET COUNT 255 10x3/uL (130-400); RBC 3.49 10x6/uL (4.00-5.40); WBC 6.2 10x3/uL (4.8-10.8)
[2017-11-17] MEDS ORDERED: PREDNISONE50 MG PO (05:55)
[2017-11-17] MEDS ORDERED: DOXYCYCLINE HY100 M2 PO (05:55)
[2017-11-17 06:24] VITALS: BP 137/75
== END 2017-11-17 06:36 | disposition home or self-care (01) ==
LOC: D.ER 00:48
PROVIDERS: Emergency Medicine
DX: J44.1 Chronic obstructive pulmonary disease with (acute) exacerbation (principal); R05 Cough; Z86.59 Personal history of other mental and behavioral disorders

== ENCOUNTER → 2018-01-10 19:47 | Outpatient (CLI) | payer MEDICAID ==
[2017-11-17 00:50] VITALS: BMI 38.1
[~2018-01-10 19:47] MED LIST changes: +CEREFOLIN TAB1 TAB PO; +DOXYCYCLINE HY100 M2 PO; +FLORAJEN3 CAPS460 MG PO; +LEVAQUIN500 MG PO; +OMEPRAZOLE20 M1 PO; +PREDNISONE50 MG PO; +TESSALON PERLE100 MG PO; +ULTRAM50 MG PO; +VITAMIN B-1100 M1 PO; +ZANTAC150 MG
== END | disposition home or self-care (01) ==
LOC: D.MAMMO 11:15
DX: Z12.31 Encounter for screening mammogram for malignant neoplasm of breast (principal)

== ENCOUNTER 2018-01-14 19:25 | Inpatient (IN) | payer MEDICAID ==
[~2018-01-14] VITALS: Ht 160 cm; Wt 111.1 kg
--- NOTE | ~2018-01-14 | CN ---
PATIENT NAME:BRIELLE MARTI MEDICAL RECORD: [id number] : 61 LOCATION:D.MS Zee ADMIT DATE: 01/14/18 ACCOUNT: [id number] CONSULTING PHYSICIAN: TYLER ALAS REFERRING PHYSICIAN: CHARISSE LEE MD DATE OF CONSULTATION: 01/15/2018 HISTORY OF PRESENT ILLNESS: This is a 52-year-old female who has had a history of smoking, but currently does not smoke. The patient has had nasal drainage and has been coughing up yellow-green sputum as well as bloody sputum, which is thick. The patient was noted to have some respiratory distress and was admitted. She denies any fever or chills. There is no chest pain, orthopnea or PND. MEDICATIONS: Include Ventolin HFA to use as needed every 4 hours. She has also had prednisone, doxycycline recently. SOCIAL HISTORY: The patient continues to smoke, has been smoking for about 33 years. She also uses marijuana recreationally. PHYSICAL EXAMINATION: GENERAL: Reveals middle-aged female who is in no acute distress, on BiPAP. VITAL SIGNS: Temperature is 98.8, heart rate of 80, respiratory rate of 19, blood pressure of 204/85, saturation 95%. HEENT: Unremarkable except for mild nasal redness with no obstruction and well moistened. NECK: Supple. Trachea is midline. CHEST: Showed coarse crackles bilaterally with some expiratory wheezes. CARDIAC: Shows no jugular venous distention, murmurs or gallops. ABDOMEN: Benign. EXTREMITIES: No clubbing, cyanosis or edema. LABORATORY DATA: CBC: White count 6.1, hemoglobin 10.8, platelet count is 318. Chemistry is unremarkable. BNP is 48. Arterial blood gases, pH 7.31, pCO2 of 67, pO2 of 94. Chest x-ray shows no acute cardiopulmonary disease. ASSESSMENT: 1. Acute respiratory failure with hypercapnia and hypoxia. It is probably secondary to postnasal drip, mucous plugging and COPD exacerbation. 2. Chronic obstructive pulmonary disease exacerbation. 3. Hemoptysis, suggestive of bronchitis, acute. PLAN: 1. Continue BiPAP. 2. Bronchodilators. 3. Systemic steroids. 4. Mucolytics with Mucinex if needed Mucomyst. TRANSINT:[id number] Voice Confirmation ID: [id number] DOCUMENT ID: [id number] CONSULT REPORT [id number] BRIELLE MARTI AUGUSTINE K at 1307 CC: [id number] DICTATION DATE: 01/15/182319 DISTRIBUTION ACCOUNTING CLERK: 01/16/18 0501 DIS IN 01/18/18 [facility] [address] [place] [address]
--- NOTE | ~2018-01-14 | PN ---
PATIENT:BRIELLE MARTI MEDICAL RECORD: [id number] LOCATION:D.MS Lozano ADMISSION DATE: 01/14/18 PROGRESS NOTE DATE OF SERVICE: 01/17/2018 SUBJECTIVE: This is a 52-year-old female, who has had stridor and stridorous breathing with shortness of breath since 2 years ago after intubation. The patient has had coughing with greenish and yellowish sputum production. The patient cough and sputum production is improved, but has had trouble with some stridor intermittently. The patient denies any chest pain, shortness of breath, or fever. PHYSICAL EXAMINATION: GENERAL: Reveals well-developed, well-nourished female, who is in no acute distress. VITAL SIGNS: Temperature 98.8, heart rate of 83, respiratory rate of 19, blood pressure 146/77. SHEENT: Unremarkable. NECK: Supple. PULMONARY: Exam is clear with intermittent stridor. There is no coarse crackles in the lower lungs. ASSESSMENT: 1. Upper airway obstruction. 2. Acute bronchitis, improved. PLAN: 1. BiPAP at night or as needed during the daytime. 2. Continue bronchodilators. 3. Empiric antibiotics. 4. Systemic steroids. TRANSINT:[id number] Voice Confirmation ID: [id number] DOCUMENT ID: [id number] TYLER ALAS at 1307 CC: [id number] DICTATION DATE: 01/17/18 0012 DRIER: 01/17/18 0952 DIS IN 01/18/18 [place] [id number] [place] [id number]
--- NOTE | ~2018-01-14 | PN ---
PATIENT:BRIELLE MARTI MEDICAL RECORD: [id number] LOCATION:D.MS Lozano ADMISSION DATE: 01/14/18 PROGRESS NOTE DATE OF SERVICE: 01/17/2018 SUBJECTIVE: This is a 52-year-old female, who also has stridorous breathing and shortness of breath, especially at night. This occurred after she had surgery for her thyroid. The patient has seen ENT specialist, who suggested the trach, but the patient refused. She felt there was too much work involved taking care of trach. The patient will be treated with bronchodilators. She also has BiPAP that she uses at night. The patient probably has BiPAP at home and used as needed, especially at night when she gets into trouble. She previously even may have helped with the CPAP. She may need a sleep study. The patient denies any fever or chills or any sputum production. PHYSICAL EXAMINATION: GENERAL: Reveals a middle-aged female, who is in no acute distress. VITAL SIGNS: Temperature 98.1, heart rate of 66, respiratory rate of 18, blood pressure 109/76. SHEENT: Unremarkable. NECK: Tenderness. CHEST: Clear with some transmitted sounds. HEART: Shows no jugular venous distention, murmur or gallops. ABDOMEN: Benign, without any tenderness. EXTREMITIES: Shows no clubbing, cyanosis, or edema. LABORATORY DATA: White count of 8.9, hemoglobin 11.5, platelet count is 355,000. Chemistry is unremarkable. ASSESSMENT: Upper airway obstruction secondary to laryngeal abnormalities. The patient will be helped with tracheostomy or CPAP or BiPAP. She may need an equipment on discharge. PLAN: 1. Continue BiPAP at night and as needed. 2. Bronchodilators. TRANSINT:[id number] Voice Confirmation ID: [id number] DOCUMENT ID: [id number] TYLER ALAS at 1307 CC: [id number] DICTATION DATE: 01/17/181915 EMAIL ENGINEER: 01/18/18 0318 DIS IN 01/18/18 [facility] [address] [place] [address]
[~2018-01-14 19:25] MED LIST changes: -CEREFOLIN TAB1 TAB PO; -FLORAJEN3 CAPS460 MG PO; -LEVAQUIN500 MG PO; -TESSALON PERLE100 MG PO; -VITAMIN B-1100 M1 PO
[2018-01-14 20:12] LABS: BASOPHILS 0.7 % (0-2); EOSINOPHILS 1.5 % (0-7); HEMATOCRIT 34.2 % (36.0-48.0); HEMOGLOBIN 10.8 g/dL (12-16); IMMATURE GRANULOCYTES 0.1 % (0-5); LYMPHOCYTES 19.1 % (15-50); MCH 29.3 pg (26.0-34.0); MCHC 31.6 g/dL (31.0-37.0); MCV 92.7 fL (80.0-100.0); MEAN PLATELET VOLUME 9.7 fL (7.4-10.4); MONOCYTES 12.9 % (2-11); NEUTROPHILS 65.7 % (40-80); RBC 3.69 10x6/uL (4.00-5.40); RDW 13.8 % (11.5-14.5); WBC 6.8 10x3/uL (4.8-10.8)
[2018-01-14 20:20] LABS: INR 1.01 (0.85-1.17); PROTIME 12.9 SECONDS (11.6-15.0)
[2018-01-14 20:21] LABS: D-DIMER-QUANTITATIVE < 0.27 ug/mLFEU (0.20-0.54)
[2018-01-14 20:38] LABS: PLATELET COUNT 312 10x3/uL (130-400)
[2018-01-14 20:41] LABS: ALBUMIN 3.6 g/dL (3.4-5.0); ALKALINE PHOSPHATASE 68 U/L (46-116); ALT (SGPT) 74 U/L (10-68); BILIRUBIN - TOTAL 0.37 mg/dL (0.2-1.3); CALC OSMOLALITY 276 mosm/kg (275-300); CALCIUM 8.7 mg/dL (8.5-10.1); CHLORIDE - SERUM 102 mmol/L (98-107); CREATININE - SERUM 0.7 mg/dL (0.6-1.3); GLUCOSE 99 mg/dL (74-106); PROTEIN - SERUM 8.7 g/dL (6.4-8.2); SODIUM 140 mmol/L (136-145); UREA NITROGEN 8 mg/dL (7-18); eGFR NON AFRICAN AMERICAN > 90 mL/min (90-120)
[2018-01-14 20:52] LABS: C-REACTIVE PROTEIN 0.5 mg/dL (0.0-0.9); CKMB 14.3 U/L (0.0-3.6); CREATINE KINASE 653 UL (21-215); PRO BNP 48 pg/mL (0-125); TROPONIN-I < 0.017 ng/mL (0.000-0.060)
[2018-01-14 22:19] VITALS: BP 141/65
[2018-01-15] VITALS (7 sets, daily range): BP systolic 135–155; BP diastolic 78–85; Ht 160 cm; Wt 111.1 kg
[2018-01-15 05:57] LABS: BASOPHILS 0.2 % (0-2); EOSINOPHILS 0 % (0-7); HEMATOCRIT 34.2 % (36.0-48.0); HEMOGLOBIN 10.8 g/dL (12-16); IMMATURE GRANULOCYTES 0.3 % (0-5); LYMPHOCYTES 7.7 % (15-50); MCH 29.4 pg (26.0-34.0); MCHC 31.6 g/dL (31.0-37.0); MCV 93.2 fL (80.0-100.0); MEAN PLATELET VOLUME 10.1 fL (7.4-10.4); MONOCYTES 0.7 % (2-11); NEUTROPHILS 91.1 % (40-80); PLATELET COUNT 318 10x3/uL (130-400); RBC 3.67 10x6/uL (4.00-5.40); RDW 13.7 % (11.5-14.5); WBC 6.1 10x3/uL (4.8-10.8)
[2018-01-15 06:30] LABS: ANION GAP 9.9 mmol/L (8-16); CALCIUM 8.7 mg/dL (8.5-10.1); CARBON DIOXIDE 31.7 mmol/L (21.0-32.0); POTASSIUM - SERUM 4.6 mmol/L (3.5-5.1)
[2018-01-15 06:31] LABS: CREATININE - SERUM 0.9 mg/dL (0.6-1.3)
[2018-01-15] MEDS ORDERED: CEREFOLIN TAB1 TAB PO (10:06)
[2018-01-15] MEDS ORDERED: VITAMIN B-1100 M1 PO (10:06)
[2018-01-16 00:54] VITALS: BP 119/71
[2018-01-16 04:00] VITALS: BP 130/66
[2018-01-16 07:13] LABS: BASOPHILS 0 % (0-2); EOSINOPHILS 0 % (0-7); HEMATOCRIT 35.1 % (36.0-48.0); HEMOGLOBIN 11.2 g/dL (12-16); IMMATURE GRANULOCYTES 0.2 % (0-5); LYMPHOCYTES 5.8 % (15-50); MCH 29.7 pg (26.0-34.0); MCHC 31.9 g/dL (31.0-37.0); MCV 93.1 fL (80.0-100.0); MEAN PLATELET VOLUME 10.7 fL (7.4-10.4); MONOCYTES 4.3 % (2-11); NEUTROPHILS 89.7 % (40-80); PLATELET COUNT 339 10x3/uL (130-400); RBC 3.77 10x6/uL (4.00-5.40); RDW 13.6 % (11.5-14.5)
[2018-01-16 07:33] LABS: ALBUMIN 3.2 g/dL (3.4-5.0); ALKALINE PHOSPHATASE 65 U/L (46-116); CALCIUM 9.1 mg/dL (8.5-10.1); CARBON DIOXIDE 35.2 mmol/L (21.0-32.0); CHLORIDE - SERUM 99 mmol/L (98-107); CREATININE - SERUM 0.7 mg/dL (0.6-1.3); GLUCOSE 128 mg/dL (74-106); POTASSIUM - SERUM 4.4 mmol/L (3.5-5.1); PROTEIN - SERUM 8.3 g/dL (6.4-8.2); SODIUM 137 mmol/L (136-145); eGFR NON AFRICAN AMERICAN > 90 mL/min (90-120)
[2018-01-16 07:34] LABS: ALT (SGPT) 55 U/L (10-68); CALC OSMOLALITY 274 mosm/kg (275-300); UREA NITROGEN 11 mg/dL (7-18)
[2018-01-16 08:45] VITALS: BP 135/71
[2018-01-16 12:36] VITALS: BP 131/65
[2018-01-16 16:36] VITALS: BP 126/75
[2018-01-16 20:23] VITALS: BP 146/77
[2018-01-17 04:00] VITALS: BP 164/82
[2018-01-17 07:26] LABS: BASOPHILS 0 % (0-2); EOSINOPHILS 0 % (0-7); HEMOGLOBIN 11.5 g/dL (12-16); IMMATURE GRANULOCYTES 0.2 % (0-5); LYMPHOCYTES 5.9 % (15-50); MCH 29.5 pg (26.0-34.0); MCHC 31.9 g/dL (31.0-37.0); MCV 92.3 fL (80.0-100.0); MEAN PLATELET VOLUME 10.3 fL (7.4-10.4); MONOCYTES 4.3 % (2-11); NEUTROPHILS 89.6 % (40-80); PLATELET COUNT 355 10x3/uL (130-400); RDW 13.5 % (11.5-14.5); WBC 8.9 10x3/uL (4.8-10.8)
[2018-01-17 07:43] LABS: ALBUMIN 3.2 g/dL (3.4-5.0); ALKALINE PHOSPHATASE 60 U/L (46-116); ALT (SGPT) 47 U/L (10-68); CALCIUM 8.6 mg/dL (8.5-10.1); CARBON DIOXIDE 34.2 mmol/L (21.0-32.0); CHLORIDE - SERUM 100 mmol/L (98-107); CREATININE - SERUM 0.7 mg/dL (0.6-1.3); GLUCOSE 135 mg/dL (74-106); MAGNESIUM - SERUM 2.1 mg/dL (1.8-2.4); POTASSIUM - SERUM 4.2 mmol/L (3.5-5.1); PROTEIN - SERUM 8.1 g/dL (6.4-8.2); SODIUM 138 mmol/L (136-145); eGFR NON AFRICAN AMERICAN > 90 mL/min (90-120)
[2018-01-17 07:45] LABS: CALC OSMOLALITY 279 mosm/kg (275-300); UREA NITROGEN 17 mg/dL (7-18)
[2018-01-17 09:09] VITALS: BP 137/76
[2018-01-17 12:14] VITALS: BP 142/76
[2018-01-17 15:45] VITALS: BP 136/74
[2018-01-17 20:00] VITALS: BP 125/75
[2018-01-18] VITALS: BP 144/73
[2018-01-18 04:00] VITALS: BP 148/86
[2018-01-18 05:42] LABS: BASOPHILS 0 % (0-2); EOSINOPHILS 0 % (0-7); HEMATOCRIT 35.2 % (36.0-48.0); HEMOGLOBIN 11.1 g/dL (12-16); IMMATURE GRANULOCYTES 0.2 % (0-5); MCH 29.1 pg (26.0-34.0); MCHC 31.5 g/dL (31.0-37.0); MCV 92.1 fL (80.0-100.0); MEAN PLATELET VOLUME 10.1 fL (7.4-10.4); MONOCYTES 10.2 % (2-11); NEUTROPHILS 72.6 % (40-80); PLATELET COUNT 345 10x3/uL (130-400); RBC 3.82 10x6/uL (4.00-5.40); RDW 13.5 % (11.5-14.5); WBC 8.1 10x3/uL (4.8-10.8)
[2018-01-18 06:16] LABS: ALBUMIN 2.8 g/dL (3.4-5.0); ALKALINE PHOSPHATASE 55 U/L (46-116); ALT (SGPT) 43 U/L (10-68); BILIRUBIN - TOTAL 0.28 mg/dL (0.2-1.3); CALC OSMOLALITY 279 mosm/kg (275-300); CALCIUM 8.3 mg/dL (8.5-10.1); CARBON DIOXIDE 31.8 mmol/L (21.0-32.0); CHLORIDE - SERUM 101 mmol/L (98-107); CREATININE - SERUM 0.7 mg/dL (0.6-1.3); GLUCOSE 105 mg/dL (74-106); POTASSIUM - SERUM 3.7 mmol/L (3.5-5.1); PROTEIN - SERUM 7.2 g/dL (6.4-8.2); SODIUM 139 mmol/L (136-145); UREA NITROGEN 19 mg/dL (7-18); eGFR NON AFRICAN AMERICAN > 90 mL/min (90-120)
[2018-01-18 08:24] VITALS: BP 129/74
[2018-01-18 12:01] VITALS: BP 137/69
[2018-01-18] MEDS ORDERED: FLORAJEN3 CAPS460 MG PO (12:39)
[2018-01-18] MEDS ORDERED: LEVAQUIN500 MG PO (12:39)
[2018-01-18] MEDS ORDERED: TESSALON PERLE100 MG PO (12:39)
[2018-01-18] MEDS ORDERED: PREDNISONE10 MG PO (12:40)
== END 2018-01-18 16:49 | disposition home health service (06) | DRG 189 ==
LOC: D.ER 19:25 → D.MS 23:12
PROVIDERS: Family Medicine; Family Medicine Adult Medicine
DX: J96.20 Acute and chronic respiratory failure, unspecified whether with hypoxia or hypercapnia (principal); J44.1 Chronic obstructive pulmonary disease with (acute) exacerbation; Z68.41 Body mass index [BMI] 40.0-44.9, adult; J44.0 Chronic obstructive pulmonary disease with (acute) lower respiratory infection; J96.01 Acute respiratory failure with hypoxia; J96.02 Acute respiratory failure with hypercapnia; J20.9 Acute bronchitis, unspecified; Z87.891 Personal history of nicotine dependence; Z99.81 Dependence on supplemental oxygen; K75.9 Inflammatory liver disease, unspecified; F20.9 Schizophrenia, unspecified; F31.9 Bipolar disorder, unspecified; E04.9 Nontoxic goiter, unspecified; F12.90 Cannabis use, unspecified, uncomplicated

== ENCOUNTER 2018-04-26 14:17 | Emergency (ER) | payer MEDICAID ==
[~2018-04-26] VITALS: Ht 160 cm; Wt 113.6 kg
[~2018-04-26 14:17] MED LIST changes: +CEREFOLIN TAB1 TAB PO; +FLORAJEN3 CAPS460 MG PO; +LEVAQUIN500 MG PO; +TESSALON PERLE100 MG PO; +VITAMIN B-1100 M1 PO
[2018-04-26 14:29] VITALS: Ht 160 cm; Wt 113.6 kg
[2018-04-26 15:12] LABS: BASOPHILS 0.3 % (0-2); EOSINOPHILS 1.4 % (0-7); HEMATOCRIT 33.1 % (36.0-48.0); HEMOGLOBIN 10.6 g/dL (12-16); IMMATURE GRANULOCYTES 0.3 % (0-5); LYMPHOCYTES 19.8 % (15-50); MCH 29.9 pg (26.0-34.0); MCV 93.5 fL (80.0-100.0); NEUTROPHILS 66.2 % (40-80); RBC 3.54 10x6/uL (4.00-5.40); RDW 16.1 % (11.5-14.5); WBC 6.6 10x3/uL (4.8-10.8)
[2018-04-26 15:17] LABS: PLATELET COUNT 256 10x3/uL (130-400)
[2018-04-26 15:28] LABS: APTT 29.1 SECONDS (22.8-39.4); INR 1.05 (0.85-1.17); PROTIME 13.4 SECONDS (11.6-15.0)
[2018-04-26 15:30] VITALS: BP 149/69
[2018-04-26 15:35] LABS: ALBUMIN 3.5 g/dL (3.4-5.0); ALKALINE PHOSPHATASE 57 U/L (46-116); ALT (SGPT) 49 U/L (10-68); BILIRUBIN - TOTAL 0.31 mg/dL (0.2-1.3); CALC OSMOLALITY 276 mosm/kg (275-300); CALCIUM 9.2 mg/dL (8.5-10.1); CARBON DIOXIDE 30.2 mmol/L (21.0-32.0); CHLORIDE - SERUM 102 mmol/L (98-107); CREATININE - SERUM 0.8 mg/dL (0.6-1.3); GLUCOSE 101 mg/dL (74-106); SODIUM 138 mmol/L (136-145); UREA NITROGEN 16 mg/dL (7-18); eGFR NON AFRICAN AMERICAN 79 mL/min (90-120)
[2018-04-26 15:47] LABS: CREATINE KINASE 244 UL (21-215); PRO BNP 40 pg/mL (0-125)
[2018-04-26 15:55] LABS: TROPONIN-I < 0.017 ng/mL (0.000-0.060)
== END 2018-04-26 17:33 | disposition home or self-care (01) ==
LOC: D.ER 14:17
PROVIDERS: Family Medicine
DX: J44.1 Chronic obstructive pulmonary disease with (acute) exacerbation (principal); R07.9 Chest pain, unspecified; R00.0 Tachycardia, unspecified

== ENCOUNTER 2019-01-16 21:22 | Inpatient (IN) | payer MEDICAID ==
[~2019-01-16] VITALS: Ht 149.9 cm; Wt 68.9 kg
[~2019-01-16 21:22] MED LIST changes: +RANITIDINE HCL150 M1 PO; +TRAZODONE HCL150 MG PO; -TRAZODONE HCL50 MG PO; -ZANTAC150 MG
[2019-01-16 21:56] LABS: BASOPHILS 0.5 % (0-2); EOSINOPHILS 1.6 % (0-7); HEMATOCRIT 37.9 % (36.0-48.0); HEMOGLOBIN 12.8 g/dL (12-16); IMMATURE GRANULOCYTES 0.1 % (0-5); MCH 31.1 pg (26.0-34.0); MCHC 33.8 g/dL (31.0-37.0); MEAN PLATELET VOLUME 9.4 fL (7.4-10.4); MONOCYTES 13.7 % (2-11); NEUTROPHILS 49.1 % (40-80); PLATELET COUNT 288 10x3/uL (130-400); RBC 4.12 10x6/uL (4.00-5.40); RDW 14.7 % (11.5-14.5); WBC 7.3 10x3/uL (4.8-10.8)
[2019-01-16 22:11] LABS: APTT 34.3 SECONDS (22.8-39.4); INR 1.1 (0.85-1.17); PROTIME 13.7 SECONDS (11.6-15.0)
[2019-01-16 22:22] LABS: ALBUMIN 2.9 g/dL (3.4-5.0); ALKALINE PHOSPHATASE 71 U/L (46-116); ALT (SGPT) 25 U/L (10-68); BILIRUBIN - TOTAL 0.35 mg/dL (0.2-1.3); CALC OSMOLALITY 274 mosm/kg (275-300); CALCIUM 8.2 mg/dL (8.5-10.1); CARBON DIOXIDE 23.3 mmol/L (21.0-32.0); CHLORIDE - SERUM 105 mmol/L (98-107); CREATININE - SERUM 0.9 mg/dL (0.6-1.3); GLUCOSE 93 mg/dL (74-106); POTASSIUM - SERUM 3.5 mmol/L (3.5-5.1); SODIUM 138 mmol/L (136-145); UREA NITROGEN 9 mg/dL (7-18); eGFR NON AFRICAN AMERICAN 69 mL/min (90-120)
[2019-01-16 22:30] LABS: CKMB 1.5 U/L (0.0-3.6); CREATINE KINASE 280 UL (21-215); PRO BNP 77 pg/mL (0-125)
[2019-01-16 22:36] LABS: TROPONIN-I < 0.017 ng/mL (0.000-0.060)
--- NOTE | 2019-01-17 01:57 | NUR ---
PATIENT ARRIVED TO ROOM FROM ER. QUICK START AND ADMISSION HISTORY COMPLETE.
[2019-01-17] MEDS ORDERED: IBUPROFEN600 MG PO (02:03)
[2019-01-17] MEDS ORDERED: HYDROCHLOROTHIA25 MG PO (02:04)
[2019-01-17] MEDS ORDERED: XANAX0.25 MG PO (02:05)
[2019-01-17 02:29] VITALS: BP 138/77; BMI 30.7
[2019-01-17 04:00] VITALS: BP 115/65
[2019-01-17 05:24] LABS: BASOPHILS 0 % (0-2); EOSINOPHILS 0 % (0-7); HEMATOCRIT 38.5 % (36.0-48.0); HEMOGLOBIN 12.9 g/dL (12-16); IMMATURE GRANULOCYTES 0.4 % (0-5); MCH 30.8 pg (26.0-34.0); MCHC 33.5 g/dL (31.0-37.0); MCV 91.9 fL (80.0-100.0); MEAN PLATELET VOLUME 9.6 fL (7.4-10.4); MONOCYTES 0.4 % (2-11); NEUTROPHILS 90.2 % (40-80); PLATELET COUNT 300 10x3/uL (130-400); RBC 4.19 10x6/uL (4.00-5.40); RDW 14.7 % (11.5-14.5)
[2019-01-17 05:28] LABS: WBC 5.1 10x3/uL (4.8-10.8)
--- NOTE | 2019-01-17 05:57 | NUR ---
LM ELLIS PAGED FOR D-DIMER LAB BEING ELEVATED.
[2019-01-17 05:58] LABS: ALKALINE PHOSPHATASE 71 U/L (46-116); ALT (SGPT) 27 U/L (10-68); BILIRUBIN - TOTAL 0.32 mg/dL (0.2-1.3); CALCIUM 8.2 mg/dL (8.5-10.1); CARBON DIOXIDE 21.8 mmol/L (21.0-32.0); CHLORIDE - SERUM 104 mmol/L (98-107); CKMB 1.6 U/L (0.0-3.6); CREATINE KINASE 252 UL (21-215); CREATININE - SERUM 0.8 mg/dL (0.6-1.3); MAGNESIUM - SERUM 1.6 mg/dL (1.8-2.4); PHOSPHOROUS 2.4 mg/dL (2.5-4.9); PROTEIN - SERUM 8.4 g/dL (6.4-8.2); SODIUM 138 mmol/L (136-145); UREA NITROGEN 9 mg/dL (7-18); eGFR NON AFRICAN AMERICAN 79 mL/min (90-120)
[2019-01-17 06:06] LABS: CALC OSMOLALITY 277 mosm/kg (275-300); GLUCOSE 158 mg/dL (74-106); POTASSIUM - SERUM 4.1 mmol/L (3.5-5.1); TROPONIN-I < 0.017 ng/mL (0.000-0.060)
[2019-01-17 08:21] VITALS: BP 132/74
[2019-01-17 11:49] LABS: CKMB 1.7 U/L (0.0-3.6); CREATINE KINASE 237 UL (21-215)
[2019-01-17 11:54] LABS: TROPONIN-I < 0.017 ng/mL (0.000-0.060)
--- NOTE | 2019-01-17 13:00 | NUR ---
I have reviewed this patient and I concur with the Shift Assessment completed by the Licensed Practical Nurse today this shift.
[2019-01-17 14:00] VITALS: Ht 149.9 cm; Wt 68.9 kg
[2019-01-17 16:24] VITALS: BP 139/75
[2019-01-17 18:23] LABS: CREATINE KINASE 221 UL (21-215)
[2019-01-17 18:24] LABS: TROPONIN-I < 0.017 ng/mL (0.000-0.060)
--- NOTE | 2019-01-17 19:07 | NUR ---
BED SIDE REPORT RECEIVED. PT NOT IN ROOM AT THIS TIME. PT AMBULATING AROUND UNIT. PLACED NAME AND DATE ON BOARD. WILL CPOC
[2019-01-17 20:00] VITALS: BP 142/78
--- NOTE | 2019-01-17 21:29 | NUR ---
PT COMPLAINS OF NEEDING 300MG OF TRAZADONE. WILL PAGE LM REGARDING COMPLAINT. PT IS SITTING UP IN BED. DYSPNEA, RHONCI HEARD FROM 2 FEET AWAY PT DENIES A PRODUCTIVE COUGH. COMPLAINS ABOUT RIGHT AC IV. FLUSHES BUT SINCE IT HAS PAIN NURSE WILL REMOVE AND REPLACE. WILL CPOC
--- NOTE | 2019-01-17 21:58 | NUR ---
SPOKE WITH BRIDGER ELLIS AND TVO TO INCREASE TO 300MG LIKE PT TAKES AT HOME. WILL HAVE MOP MAN PULL 250MG SINCE PT ALREADY HAD 50MG REMOVED RIGHT AC PIV WITH CATH INTACT. WILL START A NEW ONE SOON ABLE. PT HAS NO S/S OF DISTRESS. BED LOW AND CALL LIGHT IN REACH. WILL CPOC
--- NOTE | 2019-01-17 23:16 | NUR ---
NEW IV PLACED IN RIGHT HAND 20G ONE ATTEMPT.
--- NOTE | 2019-01-17 23:46 | NUR ---
PT HAS ROCEPHIN INFUSING. DENIES ANY NEEDS. NO S/S OF DISTRESS. WILL CPOC
[2019-01-18] VITALS: BP 115/62
--- NOTE | 2019-01-18 00:53 | NUR ---
FIXED PT TELEMETRY. STARTED ZITHROMAX ORDERED. PT HAS NO S/S OF DISTRESS. WILL CPOC
[2019-01-18 04:30] VITALS: BP 125/61
--- NOTE | 2019-01-18 05:23 | NUR ---
MORNING MEDICATIONS GIVEN. PT VERBALIZED UNDERSTANDING OF MEDICATIONS. NO S/S OF DISTRESS. WILL CPOC
[2019-01-18 06:25] LABS: CALC OSMOLALITY 275 mosm/kg (275-300); CALCIUM 8.6 mg/dL (8.5-10.1); CARBON DIOXIDE 26.3 mmol/L (21.0-32.0); CHLORIDE - SERUM 103 mmol/L (98-107); CREATININE - SERUM 0.7 mg/dL (0.6-1.3); GLUCOSE 143 mg/dL (74-106); MAGNESIUM - SERUM 1.9 mg/dL (1.8-2.4); PHOSPHOROUS 2.9 mg/dL (2.5-4.9); POTASSIUM - SERUM 4.2 mmol/L (3.5-5.1); SODIUM 137 mmol/L (136-145); eGFR NON AFRICAN AMERICAN > 90 mL/min (90-120)
[2019-01-18 06:32] LABS: UREA NITROGEN 12 mg/dL (7-18)
[2019-01-18 06:35] LABS: BASOPHILS 0 % (0-2); EOSINOPHILS 0 % (0-7); HEMATOCRIT 36.7 % (36.0-48.0); HEMOGLOBIN 12.4 g/dL (12-16); IMMATURE GRANULOCYTES 0.2 % (0-5); LYMPHOCYTES 5.9 % (15-50); MCH 31.1 pg (26.0-34.0); MCHC 33.8 g/dL (31.0-37.0); MONOCYTES 5.1 % (2-11); NEUTROPHILS 88.8 % (40-80); PLATELET COUNT 278 10x3/uL (130-400); RBC 3.99 10x6/uL (4.00-5.40)
[2019-01-18 07:04] LABS: WBC 12.6 10x3/uL (4.8-10.8)
[2019-01-18 08:59] VITALS: BP 118/46
--- NOTE | 2019-01-18 15:03 | MORECARE ---
CASE MANAGEMENT DISCHARGE SUMMARY PATIENT: BRIELLE MARTI UNIT: [id number] ADM DATE: 01/16/19 AGE: 53 : 61 SEX: F ROOM/BED: D.0138 AUTHOR: REINA CISNEROS PHYSICIAN: REFERRING PHYSICIAN: DIAZ GOMEZ MD DATE OF SERVICE: 01/18/19 Discharge Plan Patient Name: BRIELLE MARTI Facility: [facility]:[place] : 1965 Planned Disposition: Home Anticipated Discharge Date: 01/20/19 Discharge Date: Expected LOS: 4 Initial Reviewer: [email or web address] Initial Review Date: 01/17/2019 Generated: 01/18/19 4:02 pm Comments DCP- Discharge Planning Updated by [email or web address]: Otilia Dsouza on 01/18/19 1:[address] Patient Name: BRIELLE MARTI Admission Status: ER Accout number: [id number] Admission Date: 01-16-2019 : 1965 Admission Diagnosis:SHORTNESS OF BREATH Attending: DIAZ GOMEZ Current LOS: 2 Anticipated DC Date: 01-20-2019 Planned Disposition: Home Primary Insurance: MEDICAID [place] Discharge Planning Comments: DC PLAN: Return home to [place] at ut. DC NEEDS: PCP to arrange HH when she returns home. CM met with patient and her sig other, Sundeep to complete initial dc planning assessment. CM educated patient on the CM role and verbal consent given by patient to complete assessment. CM verified patient's address, phone number, and emergency contact phone numbers. Patient lives at [facility] in [place]. She reports she is visiting her and will return to [place] as soon as she discharges from the hospital. She reported she is supposed to be on a Train today but since in the hospital she had to cancel her trip. CM discussed availability of home health, rehab services, and medical equipment. She reported her PCP will be arranging home health for her once she gets home. She has portable oxygen in Joseph's car that she will use when she discharges home. Patient denied further known discharge needs at this time. Patient reports Joseph will transport her home at time of discharge. CM will continue to follow and will assist as needed with dc plans/needs. Head Of Maintenance: Otilia Dsouza RN, [facility] DCPIA - Discharge Planning Initial Assessment Updated by [email or web address]: Otilia Dsouza on 01/18/19 2:54 pm * Is the patient Alert and Oriented? Yes * How many steps to enter\exit or inside your home? 10 * PCP Dr. Geronimo in [place] * Pharmacy [facility] on [address] * Preadmission Environment Home Alone * ADLs Independent * Equipment Oxygen * Other Equipment has portable in sig other car. * List name and contact numbers for known caregivers / representatives who currently or will assist patient after discharge: Sundeep Sauceda - [facility] - [phone] * Verbal permission to speak to the caregivers and representatives has been obtained from the patient. Yes * Community resources currently utilized None * Additional services required to return to the preadmission environment? No * Can the patient safely return to the preadmission environment? Yes * Has this patient been hospitalized within the prior 30 days at any hospital? No Patient Name: BRIELLE MARTI Page [id number] at 1503 All edits/amendments must be made on the electronic document DICTATION DATE: 01/18/19 1502 ORGANIC PREPARATION ANALYST: KIMMIE 01/18/19 1502 RPT#: [id number] MS DATE: STATUS: ADM IN [facility] [address] [place] [address] END OF REPORT
--- NOTE | 2019-01-18 18:22 | NUR ---
RESP UL ON . TELEMETRY SR. CALL LIGHT IN REACH.
--- NOTE | 2019-01-18 19:57 | NUR ---
RECEIVED REPORT, WILL ASSUME CARE OF PT, BREATHING TREATMENT IN PROGESS, PT ASKING FOR ZOFRAN(PROVIDE),DENIES ANY OTHER NEEDS AT THIS TIME, BED IS LOW, SRX2, CALL LIGHT IN REACH, WILL CONTINUE PLAN OF CARE
[2019-01-18 20:00] VITALS: BP 132/77
[2019-01-19 00:30] VITALS: BP 129/78
--- NOTE | 2019-01-19 03:34 | NUR ---
I have reviewed this patient and I concur with the Shift Assessment completed by the Licensed Practical Nurse today this shift.
[2019-01-19 04:00] VITALS: BP 129/78
[2019-01-19 05:50] LABS: BASOPHILS 0 % (0-2); EOSINOPHILS 0.1 % (0-7); HEMATOCRIT 36.3 % (36.0-48.0); HEMOGLOBIN 12.1 g/dL (12-16); IMMATURE GRANULOCYTES 0.2 % (0-5); LYMPHOCYTES 5.6 % (15-50); MCH 31.1 pg (26.0-34.0); MCHC 33.3 g/dL (31.0-37.0); MCV 93.3 fL (80.0-100.0); MEAN PLATELET VOLUME 10.1 fL (7.4-10.4); MONOCYTES 4.1 % (2-11); PLATELET COUNT 274 10x3/uL (130-400); RBC 3.89 10x6/uL (4.00-5.40); RDW 14.9 % (11.5-14.5); WBC 10.1 10x3/uL (4.8-10.8)
[2019-01-19 06:41] LABS: CALC OSMOLALITY 280 mosm/kg (275-300); CALCIUM 8.1 mg/dL (8.5-10.1); CARBON DIOXIDE 26.9 mmol/L (21.0-32.0); CHLORIDE - SERUM 104 mmol/L (98-107); CREATININE - SERUM 0.8 mg/dL (0.6-1.3); GLUCOSE 136 mg/dL (74-106); MAGNESIUM - SERUM 2.1 mg/dL (1.8-2.4); PHOSPHOROUS 3.3 mg/dL (2.5-4.9); POTASSIUM - SERUM 4.2 mmol/L (3.5-5.1); SODIUM 139 mmol/L (136-145); UREA NITROGEN 16 mg/dL (7-18); eGFR NON AFRICAN AMERICAN 79 mL/min (90-120)
--- NOTE | 2019-01-19 07:40 | NUR ---
PT AWAKE AND ORIENTED, SLEEPY THIS MORNIGN. NO COMPLAINTS/CONCERNS, QUESTIONS OR COMMENTS AT THIS TIME. NO ACTUE DISTRESS NOTED. CL IN REACH, SRX2.
[2019-01-19 08:43] VITALS: BP 105/54
[2019-01-19 12:13] VITALS: BP 110/68
--- NOTE | 2019-01-19 15:59 | NUR ---
PT HAD SHOWER, THEN GOT UP AND TOOK A WALK. PT WALKED WELL, NO TROUBLES. PT BACK SAFTLEY IN BED, HUSBADN AT SIDE. NO COMPLAINTS/CONCERNS. ALL QUESTIONS ANSWERED TO THE BEST OF MY ABILITY. CL IN REACH, SRX2.
--- NOTE | 2019-01-19 19:58 | NUR ---
RECEIVED REPORT, WILL ASSUME CARE OF PT, BREATHING TREATMENT IN PROGESS, DENIES ANY NEEDS AT THIS TIME, BED IS LOW, SRX2, CALL LIGHT IN REACH, WILL CONTINUE PLAN OF CARE
[2019-01-19 20:00] VITALS: BP 136/68
[2019-01-20] VITALS: BP 131/62
--- NOTE | 2019-01-20 01:54 | NUR ---
I have reviewed this patient and I concur with the Shift Assessment completed by the Licensed Practical Nurse today this shift.
[2019-01-20 04:00] VITALS: BP 139/79
[2019-01-20 06:17] LABS: HEMATOCRIT 35.9 % (36.0-48.0); HEMOGLOBIN 12.1 g/dL (12-16); LYMPHOCYTES 6.7 % (15-50); MCH 31.8 pg (26.0-34.0); MCHC 33.7 g/dL (31.0-37.0); MCV 94.5 fL (80.0-100.0); MEAN PLATELET VOLUME 9.9 fL (7.4-10.4); NEUTROPHILS 87.3 % (40-80); PLATELET COUNT 245 10x3/uL (130-400); RDW 14.7 % (11.5-14.5); WBC 7.3 10x3/uL (4.8-10.8)
[2019-01-20 06:22] LABS: CALC OSMOLALITY 279 mosm/kg (275-300); CARBON DIOXIDE 27.2 mmol/L (21.0-32.0); CHLORIDE - SERUM 106 mmol/L (98-107); CREATININE - SERUM 0.8 mg/dL (0.6-1.3); GLUCOSE 126 mg/dL (74-106); MAGNESIUM - SERUM 2.3 mg/dL (1.8-2.4); PHOSPHOROUS 3.1 mg/dL (2.5-4.9); POTASSIUM - SERUM 4.2 mmol/L (3.5-5.1); SODIUM 138 mmol/L (136-145); UREA NITROGEN 19 mg/dL (7-18); eGFR NON AFRICAN AMERICAN 79 mL/min (90-120)
--- NOTE | 2019-01-20 07:25 | NUR ---
PT ASLEEP, DID NOT WAKE I ENTERED. BREATHS EVEN, REGULAR, UNLABORED. NO SIGNS/SYMPTOMS OF ACUTE DISTRESS NOTED AT THIS TIME. CL IN REACH, SRX2. DID NOT FURTHER DISTURB.
[2019-01-20 09:06] VITALS: BP 113/55
[2019-01-20 11:43] VITALS: BP 118/60
[2019-01-20] MEDS ORDERED: OMNICEF300 MG PO (13:35)
[2019-01-20] MEDS ORDERED: ZITHROMAX250 MG PO (13:35)
[2019-01-20] MEDS ORDERED: PREDNISONE10 MG PO (13:36)
--- NOTE | 2019-01-20 14:47 | NUR ---
I have reviewed this patient and I concur with the Shift Assessment completed by the Licensed Practical Nurse today this shift.
--- NOTE | 2019-01-20 15:00 | NUR ---
PT ESCORTED OUT VIA WHEELCHAIR TO HUSBANDS POV.
--- NOTE | 2019-01-21 09:40 | MORECARE ---
CASE MANAGEMENT DISCHARGE SUMMARY PATIENT: BRIELLE MARTI UNIT: [id number] ADM DATE: 01/16/19 AGE: 53 : 61 SEX: F ROOM/BED: D.9461 AUTHOR: REINA CISNEROS PHYSICIAN: REFERRING PHYSICIAN: DIAZ GOMEZ MD DATE OF SERVICE: 01/21/19 Discharge Plan Patient Name: BRIELLE MARTI Facility: [facility]:[place] : 1965 Planned Disposition: Home Anticipated Discharge Date: 01/20/19 Discharge Date: 01/20/2019 Expected LOS: 4 Initial Reviewer: [email or web address] Initial Review Date: 01/17/2019 Generated: 01/21/19 10:40 am Comments DCP- Discharge Planning Updated by [email or web address]: Otilia Dsouza on 01/18/19 1:[address] Patient Name: BRIELLE MARTI Admission Status: ER Accout number: [id number] Admission Date: 01-16-2019 : 1965 Admission Diagnosis:SHORTNESS OF BREATH Attending: DIAZ GOMEZ Current LOS: 2 Anticipated DC Date: 01-20-2019 Planned Disposition: Home Primary Insurance: [place] Discharge Planning Comments: DC PLAN: Return home to [place] at fl. DC NEEDS: PCP to arrange HH when she returns home. CM met with patient and her sig other, Sundeep to complete initial dc planning assessment. CM educated patient on the CM role and verbal consent given by patient to complete assessment. CM verified patient's address, phone number, and emergency contact phone numbers. [facility] in [place]. She reports she is visiting her and will return to [place] as soon as she discharges from the hospital. She reported she is supposed to be on a [place] today but since in the hospital she had to cancel her trip. CM discussed availability of home health, rehab services, and medical equipment. She reported her PCP will be arranging home health for her once she gets home. She has portable oxygen in Joseph's car that she will use when she discharges home. Patient denied further known discharge needs at this time. Patient reports Joseph will transport her home at time of discharge. CM will continue to follow and will assist as needed with dc plans/needs. Urban Sociologist: Otilia Dsouza RN, [facility] DCPIA - Discharge Planning Initial Assessment Updated by [email or web address]: Otilia Dsouza on 01/18/19 2:54 pm * Is the patient Alert and Oriented? Yes * How many steps to enter\exit or inside your home? 10 * PCP Dr. Geronimo in [place] * Pharmacy [facility] on [address] * Preadmission Environment Home Alone * ADLs Independent * Equipment Oxygen * Other Equipment has portable in sig other car. * List name and contact numbers for known caregivers / representatives who currently or will assist patient after discharge: Sundeep Sauceda - psychiatric - [phone] * Verbal permission to speak to the caregivers and representatives has been obtained from the patient. Yes * Community resources currently utilized None * Additional services required to return to the preadmission environment? No * Can the patient safely return to the preadmission environment? Yes * Has this patient been hospitalized within the prior 30 days at any hospital? No Last DP export: 01/18/19 2:03 pm Patient Name: BRIELLE MARTI Page [id number] at 0940 All edits/amendments must be made on the electronic document DICTATION DATE: 01/21/19939 LIBRARY SALES CONSULTANT: KIMMIE 01/21/19939 RPT#: [id number] ME DATE:01/20/19 STATUS: DIS IN [facility] [address] [place] [address] END OF REPORT
== END 2019-01-20 15:00 | disposition home or self-care (01) | DRG 193 ==
LOC: D.ER 21:22 → D.M2 23:08
PROVIDERS: Family Medicine; ADMIT Family Medicine; ATTEND Family Medicine
DX: J18.9 Pneumonia, unspecified organism (principal); J96.21 Acute and chronic respiratory failure with hypoxia; J44.0 Chronic obstructive pulmonary disease with (acute) lower respiratory infection; J45.901 Unspecified asthma with (acute) exacerbation; J98.11 Atelectasis; R04.2 Hemoptysis; J44.1 Chronic obstructive pulmonary disease with (acute) exacerbation; Z99.81 Dependence on supplemental oxygen; I10 Essential (primary) hypertension; K21.9 Gastro-esophageal reflux disease without esophagitis; F20.9 Schizophrenia, unspecified; B19.20 Unspecified viral hepatitis C without hepatic coma; J20.9 Acute bronchitis, unspecified; R04.0 Epistaxis; E11.9 Type 2 diabetes mellitus without complications; G47.33 Obstructive sleep apnea (adult) (pediatric)

== ENCOUNTER 2019-08-23 09:00 | Outpatient (CLI) | payer MEDICAID ==
[2019-01-17 14:00] VITALS: BMI 30.7
[~2019-08-23 09:00] MED LIST changes: +HYDROCHLOROTHIA25 MG PO; +IBUPROFEN600 MG PO; +OMNICEF300 MG PO; +XANAX0.25 MG PO; +ZITHROMAX250 MG PO
== END 2019-08-23 10:00 | disposition home or self-care (01) ==
LOC: D.MAMMO 09:00
PROVIDERS: ATTEND Nurse Practitioner Family
DX: Z12.31 Encounter for screening mammogram for malignant neoplasm of breast (principal)

== ENCOUNTER → 2019-11-08 09:44 | Outpatient (CLI) | payer MEDICAID ==
[2019-01-17 14:00] VITALS: BMI 30.7
== END | disposition home or self-care (01) ==
LOC: D.RT 09:44
PROVIDERS: ATTEND Internal Medicine Pulmonary Disease
DX: J45.909 Unspecified asthma, uncomplicated (principal)